=== PATIENT | female | born 1955 | race Caucasian/White ===

== ENCOUNTER 2022-09-11 19:16 | Emergency (ER) | payer BC ==
[2022-09-11 19:22] VITALS: TEMP 97
--- NOTE | 2022-09-11 19:37 | ED ---
Fall HPI - General Chief Complaint: Fall Stated Complaint: Fall, Knee neck and back pain Time Seen by Provider: 09/11/22 19:25 Source: patient Mode of arrival: EMS - History of Present Illness Initial Comments: This patient is a 67-year-old woman ought by ambulance to elevate evaluation after she had a fall. Patient states that she was coming down the steps from her attic when she tripped on an electrical cord falling probably about 3 steps, she states that then her forehead struck the wall and she fell to the ground. She states that occurred a little after 5 PM and she was not able to get up. She had to wait until her arrived home approximately 2 hours later. She is complaining of pain to the right forehead, right neck, and right hip. 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 ROS Other: All systems not noted in ROS Statement are negative. Constitutional: Denies: fever, chills Eyes: Denies: eye pain, vision change ENT: Denies: epistaxis Respiratory: Denies: cough, dyspnea Cardiovascular: Denies: chest pain, palpitations Gastrointestinal: Denies: abdominal pain, vomiting, diarrhea Genitourinary: Denies: dysuria, hematuria Musculoskeletal: Reports: as per HPI, arthralgia. Denies: back pain Skin: Denies: rash Neurological: Reports: headache. Denies: weakness, numbness, confusion Past Medical History Past Medical History: No Reported History History of Any Multi-Drug Resistant Organisms: None Reported Past Surgical History: Orthopedic Surgery, Tubal Ligation Past Psychological History: No Psychological Hx Reported Smoking Status: Never smoker Past Alcohol Use History: None Reported Past Drug Use History: None Reported General Exam Limitations: no limitations General appearance: alert, in no apparent distress Head exam: Present: atraumatic, normocephalic Eye exam: Present: normal appearance, PERRL, EOMI. Absent: scleral icterus, conjunctival injection, nystagmus ENT exam: Present: normal oropharynx Neck exam: Present: other Respiratory exam: Present: normal lung sounds bilaterally. Absent: respiratory distress, wheezes, rales, rhonchi, stridor, chest wall tenderness Cardiovascular Exam: Present: regular rate, normal rhythm, normal heart sounds. Absent: systolic murmur, diastolic murmur, rubs, gallop GI/Abdominal exam: Present: soft. Absent: distended, tenderness, guarding, rebound, rigid, mass Extremities exam: Present: normal inspection, normal capillary refill. Absent: pedal edema, calf tenderness Back exam: Present: normal inspection. Absent: CVA tenderness (R), CVA tenderness (L) Neurological exam: Present: alert, oriented X3, CN II-XII intact. Absent: motor sensory deficit Skin exam: Present: warm, dry, intact, normal color. Absent: rash Course Vital Signs 09/11/22 09/11/22 19:18 20:22 Temperature 97 F L Pulse Rate 88 60 Respiratory 26 H 16 Rate Blood Pressure 187/100 130/60 O2 Sat by Pulse 99 98 Oximetry Disposition Clinical Impression: Head injury Disposition: HOME SELF-CARE Condition: Good Instructions (If sedation given, give patient instructions): Head Injury (ED) Is patient prescribed a controlled substance at d/c from ED?: No Referrals: None,Stated [Primary Care Provider] - 1-2 days
--- NOTE | 2022-09-11 20:45 | CT ---
EXAMINATION TYPE: CT brain cspine wo con CT DLP: Fell off attic ladder x3ft. No Loc. mGycm, Automated exposure control for dose reduction was used. DATE OF EXAM: 09/11/2022 8:09 PM COMPARISON: None. CLINICAL INDICATION:Female, 67 years old with history of fall injury; 1356.4 TECHNIQUE: Brain: Multiple axial CT images of the brain were obtained without IV contrast. Cspine: Axial CT images from the skull base to the inferior aspect of T2 we obtained without intraven ous contrast. Coronal and sagittal reformatted images were also reviewed. FINDINGS: Brain: Extra-axial spaces: No abnormal extra-axial fluid collections. Ventricular system: Within normal limits Cerebral parenchyma: No acute intraparenchymal hemorrhage or mass effect. The cub[place]-white junction is well differentiated. Cerebellum: Unremarkable. Mass effect: No evidence of midline shift. Intracranial vasculature: Atherosclerotic calcifications of the intracranial vessels. Soft tissues: Normal. Calvarium/osseous structures: No depressed skull fracture. Paranasal sinuses and mastoid air cells: Mild scattered mucosal thickening and or secretions. Visualized orbits: Orbital contents are intact. Cervical spine: Fracture: None. Osseous structures: Multilevel degenerative disc disease changes with endplate spurring and disc oste ophyte complex's. Vertebral alignment: Within normal limits. Spinal canal/Neural Foramina: No evidence of significant spinal canal narrowing. No evidence for sign ificant neural foraminal stenosis. Neck soft tissues: Prevertebral soft tissues are within normal limits. Other: The airway is patent. The lung apices are clear. IMPRESSION: No acute intracranial process. No evidence of cervical spine fracture. Mild multilevel degenerative disc disease.
[2022-09-11 21:20] VITALS: RESP 16
--- NOTE | 2022-09-11 21:29 | XR ---
EXAMINATION TYPE: XR Hip RT and AP Pelvis DATE OF EXAM: 09/11/2022 9:02 PM INDICATION: Patient age:Female; 67 years old; Reason for study: fall injury; PHH. COMPARISON: None. TECHNIQUE: The right hip was examined in the frontal and lateral projections and a AP pelvis. FINDINGS: No evidence for acute process, joint dislocation or significant soft tissue swelling. Degen eration changes of the lower spine. Pelvic fullness are present. IMPRESSION: No acute process.
[2022-09-11] MEDS ORDERED: ONDANSETRON ODT 4 MG TAB PO STA (21:48)
[2022-09-11] MEDS ORDERED: IBUPROFEN 600 MG TAB PO STA (21:49)
[2022-09-11] MEDS ORDERED: HYDROcodone/APAP 5-325MG 1 EACH TAB PO STA (21:49)
[2022-09-11 22:30] VITALS: BP 138/60; PULSE 68
== END 2022-09-11 22:30 | disposition home or self-care (01) ==
LOC: EC 19:16
DX: S09.90XA Unspecified injury of head, initial encounter (principal); W01.0XXA Fall on same level from slipping, tripping and stumbling without subsequent striking against object, initial encounter; Y92.009 Unspecified place in unspecified non-institutional (private) residence as the place of occurrence of the external cause
CPT/HCPCS: 70450; 72125; 73502; 99284